=== PATIENT | female | born 1965 | race Caucasian/White ===

== ENCOUNTER 2019-04-26 13:59 | Emergency (ER) | payer OTHER ==
--- NOTE | 2019-04-26 14:46 | RAD ---
Exam:Right ankle 3 view HISTORY: Pain. Trauma. COMPARISON: None FINDINGS: Preserved joint spaces. Intact ankle mortise. No fracture. IMPRESSION: No fracture.
== END 2019-04-26 15:11 | disposition home or self-care (01) ==
LOC: MADERS 13:59
DX: S93.401A Sprain of unspecified ligament of right ankle, initial encounter (principal); Z79.899 Other long term (current) drug therapy; X50.1XXA Overexertion from prolonged static or awkward postures, initial encounter

== ENCOUNTER 2019-10-07 02:38 | Emergency (ER) | payer OTHER, SELFPAY ==
[2019-10-07] MEDS ORDERED: EPINEPHrine 1 MG/ML AMP ONE ×2 (03:28→05:19)
[2019-10-07] MEDS ORDERED: Famotidine 20 MG TAB ONE (03:28)
[2019-10-07] MEDS ORDERED: diphenhydrAMINE 50 MG/ML VIAL ONE (05:19)
== END 2019-10-07 07:15 | disposition home or self-care (01) ==
LOC: MADERS 02:38
DX: T78.40XA Allergy, unspecified, initial encounter (principal); G89.29 Other chronic pain; Z79.899 Other long term (current) drug therapy
CPT/HCPCS: 96372; 99283; J0171; J1200

== ENCOUNTER 2022-06-02 14:31 | Emergency (ER) | payer BC, SELFPAY ==
[2022-06-02 15:50] LABS: #Basophils 0.1 thou/uL (0.0-0.2); #Eosinphils 0.1 thou/uL (0.0-0.7); #Lymphocytes 3.1 thou/uL (1.20-3.40); #Monocytes 0.4 thou/uL (0.11-0.59); #Neutrophils 6.5 thou/uL (1.40-6.50); %Basophils 0.8 % (0.0-1.0); %Eosinophils 1.5 % (0.0-10.0); %Lymphocytes 30.6 % (21.0-51.0); %Monocytes 4.1 % (0.0-10.0); %Neutrophils 63.1 % (42.0-75.0); Hemoglobin 13.6 g/dL (12.0-16.0); Mean Corpuscular HGB CONC 32.8 g/dL (32.0-36.0); Mean Corpuscular Hemoglobin 28.9 pg (27.0-31.0); Mean Corpuscular Volume 88.2 fl (78.0-98.0); Mean Platelet Volume 10.3 fL (7.4-10.4); Platelet Count 266 10x3/uL (130-400); RBC Distribution Width 14.2 % (11.5-14.5); Red Blood Cell (RBC) Count 4.69 mill/uL (4.20-5.40); White Blood Cell (WBC) Count 10.3 10x3/uL (4.8-10.8)
[2022-06-02 16:05] LABS: ALT (SGPT) 28 U/L (8-55); AST (SGOT) 15 U/L (5-34); Albumin 4.2 g/dL (3.5-5.0); Alkaline Phosphatase 104 U/L (40-110); Anion Gap 13 mmol/L (10-20); BUN (Urea Nitrogen) 18 mg/dL (9.8-20.1); Bilirubin, Total 0.2 mg/dL (0.2-1.2); Calc. Creatinine Clearance 0 mL/min (70-130); Calcium 9.8 mg/dL (7.8-10.44); Carbon Dioxide 22 mmol/L (22-29); Chloride 107 mmol/L (98-107); Estimated GFR 61; Glucose 102 mg/dL (70-105); Lipase 30 U/L (8-78); Potassium 4.6 mmol/L (3.5-5.1); Protein, Total 7.2 g/dL (6.0-8.3); Sodium 137 mmol/L (136-145)
== END 2022-06-02 17:23 | disposition home or self-care (01) ==
LOC: MADERS 14:31
DX: R07.9 Chest pain, unspecified (principal); E11.9 Type 2 diabetes mellitus without complications; E78.5 Hyperlipidemia, unspecified; I10 Essential (primary) hypertension; F17.210 Nicotine dependence, cigarettes, uncomplicated; Z79.899 Other long term (current) drug therapy; Z79.84 Long term (current) use of oral hypoglycemic drugs
CPT/HCPCS: 36415; 71045; 80053; 83690; 84484; 85025; 93005

== ENCOUNTER 2022-10-13 17:34 | Emergency (ER) | payer BC ==
[~2022-10-13 17:34] MED LIST: Iopamidol 370 76% 200 ML VIAL ONE; Sodium Chloride 0.9% 100 ML BAG ONE
[2022-10-13 18:04] LABS: INR-International Normal Ratio 0.9; PTT 24.8 sec (22.9-36.1); Prothrombin Time 12.2 sec (12.0-14.7)
[2022-10-13 18:10] LABS: Hematocrit 41.9 % (36.0-47.0); Hemoglobin 13.9 g/dL (12.0-16.0); Lymphocytes 16 % (21-51); MDiff Complete? YES; Mean Corpuscular HGB CONC 33.1 g/dL (32.0-36.0); Mean Corpuscular Hemoglobin 29.5 pg (27.0-31.0); Mean Corpuscular Volume 89.1 fl (78.0-98.0); Mean Platelet Volume 11.4 fL (7.4-10.4); Monocytes 3 % (0-10); Neutrophil 71 % (42-75); Platelet Adequacy Comment Appears Adequate; Platelet Count 266 10x3/uL (130-400); RBC Distribution Width 14.6 % (11.5-14.5); Reactive Lymphocytes 10 % (0-10); White Blood Cell (WBC) Count 12.5 10x3/uL (4.8-10.8)
[2022-10-13 18:12] LABS: ALT (SGPT) 48 U/L (8-55); AST (SGOT) 25 U/L (5-34); Albumin 4.2 g/dL (3.5-5.0); Alkaline Phosphatase 134 U/L (40-110); Anion Gap 14 mmol/L (10-20); BUN (Urea Nitrogen) 16 mg/dL (9.8-20.1); Bilirubin, Total 0.2 mg/dL (0.2-1.2); Calc. Creatinine Clearance 0 mL/min (70-130); Calcium 9.8 mg/dL (7.8-10.44); Carbon Dioxide 22 mmol/L (22-29); Chloride 107 mmol/L (98-107); Estimated GFR 66; Glucose 326 mg/dL (70-105); Protein, Total 7.2 g/dL (6.0-8.3); Sodium 138 mmol/L (136-145)
[2022-10-13 18:15] LABS: Troponin I Less than 0.010 ng/mL (< 0.028)
[2022-10-13] MEDS ORDERED: Tenecteplase 50 MG ONE (18:29)
[2022-10-13] MEDS ORDERED: diphenhydrAMINE 50 MG/ML VIAL ONE (19:21)
[2022-10-13] MEDS ORDERED: methylPREDNISolone Sod Succ/PF 125 MG/2 ML VIAL ONE (19:56)
== END 2022-10-13 20:05 | disposition short-term general hospital (02) ==
LOC: MADERS 17:34
DX: I63.9 Cerebral infarction, unspecified (principal); R29.703 NIHSS score 3; I10 Essential (primary) hypertension; E11.9 Type 2 diabetes mellitus without complications; E78.5 Hyperlipidemia, unspecified; F17.210 Nicotine dependence, cigarettes, uncomplicated; Z79.84 Long term (current) use of oral hypoglycemic drugs; Z79.899 Other long term (current) drug therapy
CPT/HCPCS: 0042T; 36415; 36416; 70450; 80053; 83690; 84484; 85025; 85610; 85730; 93005; 96374; 96375; J1200; J2930; J3101

== ENCOUNTER 2023-07-22 20:39 | Emergency (ER) | payer BC, SELFPAY ==
[2023-07-22 21:48] LABS: #Basophils 0.1 thou/uL (0.0-0.2); #Eosinphils 0.1 thou/uL (0.0-0.7); #Lymphocytes 1.9 thou/uL (1.20-3.40); #Monocytes 0.8 thou/uL (0.11-0.59); #Neutrophils 7.2 thou/uL (1.40-6.50); %Basophils 1.4 % (0.0-1.0); %Eosinophils 1.4 % (0.0-10.0); %Monocytes 7.5 % (0.0-10.0); %Neutrophils 70.8 % (42.0-75.0); Hematocrit 40.8 % (36.0-47.0); Hemoglobin 13.1 g/dL (12.0-16.0); Mean Corpuscular Hemoglobin 28.3 pg (27.0-31.0); Mean Corpuscular Volume 88.5 fl (78.0-98.0); Mean Platelet Volume 9.1 fL (7.4-10.4); Platelet Count 204 10x3/uL (130-400); RBC Distribution Width 14.4 % (11.5-14.5); Red Blood Cell (RBC) Count 4.62 mill/uL (4.20-5.40); White Blood Cell (WBC) Count 10.2 10x3/uL (4.8-10.8)
[2023-07-22 22:08] LABS: Troponin I Less than 0.010 ng/mL (< 0.028)
[2023-07-22 22:10] LABS: Anion Gap 17 mmol/L (10-20); BUN (Urea Nitrogen) 21 mg/dL (9.8-20.1); Calc. Creatinine Clearance 0 mL/min (70-130); Calcium 9.3 mg/dL (7.8-10.44); Carbon Dioxide 18 mmol/L (22-29); Chloride 109 mmol/L (98-107); Estimated GFR 69; Glucose 259 mg/dL (70-105); Potassium 4.5 mmol/L (3.5-5.1); Sodium 139 mmol/L (136-145)
[2023-07-22] MEDS ORDERED: Furosemide 40 MG (4 mL) VIAL ONE (22:46)
== END 2023-07-22 23:18 | disposition home or self-care (01) ==
LOC: MADERS 20:39
DX: R60.9 Edema, unspecified (principal); J44.9 Chronic obstructive pulmonary disease, unspecified; E11.9 Type 2 diabetes mellitus without complications; I10 Essential (primary) hypertension; F17.210 Nicotine dependence, cigarettes, uncomplicated; Z79.84 Long term (current) use of oral hypoglycemic drugs; Z79.899 Other long term (current) drug therapy
CPT/HCPCS: 36415; 71045; 80048; 83880; 84484; 85025; 93005; 96372; J1940

== ENCOUNTER 2024-05-22 17:57 | Emergency (ER) | payer SELFPAY ==
[2024-05-22] MEDS ORDERED: Aspirin Chewable 81 MG TAB ONE (18:10)
[2024-05-22] MEDS ORDERED: fentaNYL 50 mcg/mL 1 mL Vial ONE (18:10)
[2024-05-22 18:19] LABS: #Basophils 0.1 thou/uL (0.0-0.2); #Eosinophils 0.2 thou/uL (0.0-0.7); #Lymphocytes 4.3 thou/uL (1.20-3.40); #Monocytes 0.6 thou/uL (0.11-0.59); #Neutrophils 10.7 thou/uL (1.40-6.50); %Basophils 0.8 % (0.0-1.0); %Eosinophils 1.3 % (0.0-10.0); %Lymphocytes 27.1 % (21.0-51.0); %Neutrophils 66.9 % (42.0-75.0); Hematocrit 39.3 % (36.0-47.0); Mean Corpuscular HGB CONC 33.2 g/dL (32.0-36.0); Mean Corpuscular Volume 87.4 fl (78.0-98.0); Mean Platelet Volume 9.2 fL (7.4-10.4); Platelet Count 343 10x3/uL (130-400); RBC Distribution Width 14.1 % (11.5-14.5); Red Blood Cell (RBC) Count 4.49 mill/uL (4.20-5.40); White Blood Cell (WBC) Count 15.9 10x3/uL (4.8-10.8)
[2024-05-22 18:24] LABS: Prothrombin Time 12.9 sec (12.0-14.7)
[2024-05-22 18:25] LABS: PTT 26.7 sec (22.9-36.1)
[2024-05-22 18:33] LABS: ALT (SGPT) 21 U/L (Less than 34); AST (SGOT) 14 U/L (11-34); Alkaline Phosphatase 98 U/L (40-110); Anion Gap 17 mmol/L (10-20); BUN (Urea Nitrogen) 24 mg/dL (9.8-20.1); Bilirubin, Total 0.2 mg/dL (0.3-1.2); Calc. Creatinine Clearance 0 mL/min (70-130); Carbon Dioxide 18 mmol/L (22-29); Chloride 106 mmol/L (98-107); Estimated GFR 48; Globulin 3.7 g/dL (2.4-3.5); Glucose 121 mg/dL (70-105); Potassium 3.6 mmol/L (3.5-5.1); Protein, Total 7.7 g/dL (6.0-8.3); Sodium 137 mmol/L (136-145)
[2024-05-22 18:36] LABS: Troponin I 0.012 ng/mL (< 0.028)
[2024-05-22] MEDS ORDERED: Sodium Chloride 0.9% 1,000 ML ONE (18:56)
[2024-05-22] MEDS ORDERED: Enoxaparin 30 MG (0.3 mL) SYRINGE ONE (18:56)
[2024-05-22] MEDS ORDERED: Enoxaparin 60 MG (0.6 mL) SYRINGE ONE (18:56)
[2024-05-22] MEDS ORDERED: HYDROmorphone 0.5 MG/0.5 ML SYRINGE ONE (19:46)
== END 2024-05-22 23:48 | disposition short-term general hospital (02) ==
LOC: MADERS 17:57
DX: I26.99 Other pulmonary embolism without acute cor pulmonale (principal); J44.9 Chronic obstructive pulmonary disease, unspecified; E11.9 Type 2 diabetes mellitus without complications; I10 Essential (primary) hypertension; F17.210 Nicotine dependence, cigarettes, uncomplicated; Z79.899 Other long term (current) drug therapy; Z79.84 Long term (current) use of oral hypoglycemic drugs
CPT/HCPCS: 71275; 80053; 83880; 84484; 85025; 85610; 85730; 93005; 96372; 96374; 96375; J1171; J1650; J3010; J7030